=== PATIENT | male | born 1995 | race Caucasian/White ===

== ENCOUNTER 2018-12-19 06:45 | Day surgery (SDC) | payer OTHER ==
[~2018-12-19] VITALS: Ht 177.8 cm; Wt 112.0 kg
[~2018-12-19 06:45] MED LIST: IBUPROFEN600 MG PO; TRAMADOL HCL50 MG PO
--- NOTE | 2018-12-19 09:24 | NUR ---
PT ALERT, ORIENTED AND SUPPORTED BY HIS DAD ROXIE. PT WAS INJURED ON THE JOB AND SEEMS PREPARED FOR TODAY. FEW QUESTIONS, DAD WILL STAY FOR SURGERY. EXTENDED A BLESSING TO PT, WILL FOLLOW NEEDED
[2018-12-19] MEDS ORDERED: CELECOXIB200 MG PO (09:54)
[2018-12-19] MEDS ORDERED: HYDROCODON-ACE1 EA11 PO (09:54)
--- NOTE | 2018-12-19 10:25 | NUR ---
12/19/18 1025 ONESIMO THORNTON PATIENT ARRIVED AT PACU IN A NON AROUSABLE STATE. PATIENT HAS BEEN RESTING COMFORTABLY AND VITAL SIGNS HAVE BEEN WITHIN 20% OF PRE SURGERY LIMITS.
--- NOTE | 2018-12-19 10:50 | NUR ---
PT ARRIVES BACK TO THE TREATMENT ROOM ALERT AND ORIENTED. PT'S FATHER AT THE BEDSIDE. PT REPORTS NO PAIN TO HIS RIGHT SHOULDER. CMS INTACT EXCEPT FOR NUMBNESS, PT DID HAVE A BLOCK. CRYOCUFF IN PLACE WITH GOWN IN BETWEEN SKIN AND COLD PACK. PT GIVEN JELL-O, CRACKERS, AND WATER.
--- NOTE | 2018-12-19 11:24 | NUR ---
PT ATE A PEANUT BUTTER AND JELLY SANDWICH, CRACKERS, AND JELL-O. TOLERATED ALL WELL. PT IS ALSO DRINKING WATER. PT CONTINUES TO REPORT NO PAIN. PT'S FATHER AT THE BEDSIDE.
--- NOTE | 2018-12-19 12:08 | NUR ---
PT AMBULATED TO THE RESTROOM AND BACK TO BED. PT TOLERATED WELL. PT DRESSING HIMSELF WITH ASSISTANCE FROM HIS FATHER.
--- NOTE | 2018-12-19 12:25 | NUR ---
DC INSTRUCTIONS PROVIDED TO PT AND PT'S FATHER. DR. LUTZ SHOULDER SURGERY DC INSTRUCTIONS PROVIDED WELL. PT'S CRYOCUFF PACKED UP AND SENT HOME WITH THE PT. DRESSING IS CLEAN, DRY, AND INTACT. CMS INTACT WITH THE EXCEPTION OF NUMBNESS. PT HAD A BLOCK PRIOR TO SURGERY. SENSATION HAS NOT RETURNED YET. PT DENIES ANY PAIN OR NAUSEA AT THIS TIME. TRANSPORT IN WHEELCHAIR TO VEHICLE DRIVEN BY PT'S FATHER.
--- NOTE | 2018-12-20 08:08 | OR ---
[facility] [address] [place], [place] [address] Signed DATE OF OPERATION: 12/19/2018 SURGEON: Tab Gregg MD PREOPERATIVE DIAGNOSIS: Recurrent dislocations of right shoulder with labral tear. POSTOPERATIVE DIAGNOSIS: Recurrent dislocations of right shoulder with labral tear. PROCEDURE PERFORMED: Right shoulder arthroscopy with Bankart repair. ASSISTANTS: 1. Phuong Miller PA-C. 2. MATTHEW Teague. ANESTHESIA: General. BLOOD LOSS: Minimal. IMPLANTS: Three PushLock anchors were used. BRIEF HISTORY: Israel is a 23-year-old gentleman with a history of injury to his shoulder and significant Bankart lesion. Risks and benefits of operative treatment were discussed with him. He elected to proceed. Once consent was obtained, he was taken to the operating room. After adequate anesthesia, he was placed in a beach chair position. All downside pressure points were well padded. The shoulder was prepped and draped in a standard sterile fashion. The shoulder was injected with 15 mL of 0.25% Marcaine with epinephrine as was subacromial space. The standard posterior portal was made and the scope was introduced in the shoulder. ARTHROSCOPIC FINDINGS: Moderate synovitis was noted throughout the anterior and anterosuperior portion of the shoulder. The biceps and anchor were intact. The labrum was pretty much gone from about the 1 o'clock to the 4 o'clock position. There were some remnants there and the Electronically Signed By: TAB GREGG MD 12/20/18 0808 PATIENT NAME: ISRAEL BECKWITH OPERATIVE REPORT DATE OF : [birth year] REPORT #: [id number] PHYSICIAN: TAB GREGG MD PCP: NO PRIMARY CARE PHYSICIAN REPORT IS CONFIDENTIAL AND NOT TO BE RELEASED WITHOUT AUTHORIZATION [address] [address] Signed rest was avulsed off. The inferior labrum was intact. Posterior labrum was intact. Rotator cuff was intact. DESCRIPTION OF OPERATION: Standard anterior and anterosuperior portals were established and the glenoid rim was debrided of the soft tissue and scar down to bleeding bony bed. The 1st labral tape was then placed inferiorly at about the 5 o'clock position and the PushLock was drilled and appropriate anchor was placed with excellent tension. Second anchor was placed in the mid portion and 3rd superiorly. Excellent bleeding from all three was obtained. Excellent apposition of the anterior capsule and labral remnants was obtained. The sutures were all cut appropriately. Once this was accomplished, the shoulder was taken through range of motion and found to be stable. The scope was withdrawn. Portals were closed with 3-0 nylon, dressed with a ProWick dressing. He tolerated the procedure well. All sponge, needle, and instrument counts were correct. Tab Gregg MD BA/MAYUR /[id number] Copies: ~ Electronically Signed By: TAB GREGG MD 12/20/18 0808 PATIENT NAME: TANGISRAEL CONROY OPERATIVE REPORT DATE OF : [birth year] REPORT #: [id number] PHYSICIAN: TAB GREGG MD PCP: NO PRIMARY CARE PHYSICIAN REPORT IS CONFIDENTIAL AND NOT TO BE RELEASED WITHOUT AUTHORIZATION
== END 2018-12-19 12:25 | disposition home or self-care (01) ==
LOC: DS 06:45
PROVIDERS: Specialist
PROC: 0RQJ4ZZ Repair Right Shoulder Joint, Percutaneous Endoscopic Approach (ICD-10-PCS; principal; 2018-12-19 09:00)
DX: M24.411 Recurrent dislocation, right shoulder (principal); S43.491A Other sprain of right shoulder joint, initial encounter
CPT/HCPCS: 64415; 76942; C1713; J0690; J1100; J1885; J2250; J2405; J2704; J2795; J7120